=== PATIENT | female | born 1955 | race Caucasian/White ===

== ENCOUNTER 2016-08-12 18:21 | Emergency (ER) | payer MEDICARE ==
[~2016-08-12 18:21] MED LIST: ALLEGRA PO; AUGMENTIN PO; BP MED; CERTAGEN PO; DIOVAN PO; DIOVAN80 M1 PO; HYDROCODON-ACE1 EAC9 PO; IBUPROFEN PO; LOPRESSOR PO; MAXZIDE-25 MG1 UDTAB PO; MEDROL PO; MEVACOR PO; PREDNISONE PO; PROVENTIL17 GM IH; ROBITUSSIN100 MG/51 PO; ULTRAM PO; VICODIN 5/500 T1 TAB PO; [UNRECOGNIZED DRUG - OTHER]
[2016-08-12] MEDS ORDERED: BP MED (18:32)
== END 2016-08-12 19:18 | disposition home or self-care (01) ==
LOC: SED 18:21
DX: L23.7 Allergic contact dermatitis due to plants, except food (principal); I10 Essential (primary) hypertension; Z90.49 Acquired absence of other specified parts of digestive tract; Z88.8 Allergy status to other drugs, medicaments and biological substances; Z79.899 Other long term (current) drug therapy
CPT/HCPCS: 99283